=== PATIENT | female | born 1950 | race Caucasian/White ===

== ENCOUNTER 2019-02-23 01:04 | Inpatient (IN) | payer MEDICARE, MEDICAID ==
[~2019-02-23] VITALS: Ht 165.1 cm; Wt 62.5 kg
[2019-02-24 09:18] VITALS: BP 110/66
== END 2019-02-24 13:02 | disposition home or self-care (01) | DRG 282 ==
LOC: ED 02:01 → 5SO 02:15 → DCLOUNGE 02-24 12:32
PROVIDERS: ADMIT Internal Medicine; ATTEND Internal Medicine
PROC: 4A023N7 Measurement of Cardiac Sampling and Pressure, Left Heart, Percutaneous Approach (ICD-10-PCS; principal; 2019-02-23)
PROC: B211YZZ Fluoroscopy of Multiple Coronary Arteries using Other Contrast (ICD-10-PCS; 2019-02-23)
PROC: B215YZZ Fluoroscopy of Left Heart using Other Contrast (ICD-10-PCS; 2019-02-23)
DX: I21.4 Non-ST elevation (NSTEMI) myocardial infarction (principal); I25.10 Atherosclerotic heart disease of native coronary artery without angina pectoris; E78.5 Hyperlipidemia, unspecified; F32.9 Major depressive disorder, single episode, unspecified; Z79.02 Long term (current) use of antithrombotics/antiplatelets; Z79.899 Other long term (current) drug therapy; Z82.49 Family history of ischemic heart disease and other diseases of the circulatory system; Z87.891 Personal history of nicotine dependence; Z95.5 Presence of coronary angioplasty implant and graft
CPT/HCPCS: 36415; 80048; 82040; 83036; 83880; 84484; 85025; 85520; 85610; 85730; 93005; 93306; 93458; 99156; 99291; C1769; C1894; G0378; J0583; J1644; J2250; J3010; Q9967